=== PATIENT | female | born 1965 | race Caucasian/White ===

== ENCOUNTER → 2020-04-08 | Day surgery (SDC) | payer OTHER ==
[~2020-04-08] VITALS: Ht 154.9 cm; Wt 79.1 kg
[~2020-04-08] MED LIST: 0.9% SODIUM CHLORIDE 10 ML VIAL IVP ONE; BUPIVACAINE LIPOSOME/PF 1.3%-13.3MG/ML SUSPENSION 10 ML VIAL INJ ONE; BUPIVACAINE/EPI/PF 0.5% 30 ML VIAL ONE; CefoTEtan DISOD 2 GM/DEXTROSE 50 ML IV ONE; EPINEPHrine 1:1,000 [1 MG/ML] AMP ONE; FentaNYL CITRATE-PF 100 MCG/2 ML VIAL IVP PRN; HYDROmorphone 2 MG/ML SYRINGE IVP PRN; KETOROLAC TROMETHAMINE 60 MG/2 ML VIAL IM ONE; LIDOCAINE/PF 1% 2 ML VIAL ID ONE; LIDOCAINE/PF 2% 5 ML VIAL INJ ONE; MEPERIDINE-PF 25 MG/ML VIAL IVP PRN; MUPIROCIN CALCIUM 2% 22 GM OINTMENT ONE; ONDANSETRON HCL 4 MG/2 ML VIAL IVP ONE; OXYGEN THERAPY IH SCH; PROPOFOL 1% 20 ML VIAL IVP ONE; RINGERS SOLUTION,LACTATED 1,000 ML IV ONE; ROCURONIUM BROMIDE 10 MG/ML 5 ML VIAL IVP ONE; SODIUM CL IRRIG SOLN BAG 3,000 ML IRRIG ONE; SUCCINYLCHOLINE CHLORIDE 20 MG/ML 10 ML VIAL IVP ONE; SUGAMMADEX SODIUM 200 MG/2 ML VIAL IVP ONE
[2020-04-08 11:19] LABS: GLUCOMETER DEV NAME(LOC) SDS.; GLUCOSE,POINT OF CARE 89 MG/DL (70-110)
[2020-04-08 11:30] LABS: COVID AG,FIA SOURCE NASOPHARYNGEAL
== END | disposition home or self-care (01) ==
LOC: SURGERY 10:30 → EDUNIT# 12:00
PROVIDERS: ATTEND Orthopaedic Surgery
DX: T84.84XA Pain due to internal orthopedic prosthetic devices, implants and grafts, initial encounter (principal); Y83.8 Other surgical procedures as the cause of abnormal reaction of the patient, or of later complication, without mention of misadventure at the time of the procedure; L90.5 Scar conditions and fibrosis of skin; M65.872 Other synovitis and tenosynovitis, left ankle and foot; Z20.828 Contact with and (suspected) exposure to other viral communicable diseases; Z98.890 Other specified postprocedural states
CPT/HCPCS: 20680 ×2; 29895; 82962; 87426; 88300; C9803; J0171; J0330; J1885; J2405; J2704; J3490 ×4; J7120